=== PATIENT | male | born 1980 | race Two or more races ===

== ENCOUNTER 2017-10-04 20:32 | Emergency (ER) | payer SELFPAY ==
[~2017-10-04] VITALS: Ht 177.8 cm; Wt 84.5 kg
[2017-10-04 22:32] LABS: CULTURE INDICATED? YES; MICROSCOPIC INDICATED
[2017-10-04 23:00] VITALS: BP 117/69
[2017-10-04] MEDS ORDERED: CEFTRIAXONE 1,000 MG IM ONE (23:00)
[2017-10-04] MEDS ORDERED: CEFTRIAXONE 250 MG ONE (23:07)
[2017-10-04] MEDS ORDERED: LIDOCAINE-MPF 1%, 2ML ONE (23:07)
[2017-10-04] MEDS ORDERED: CEFTRIAXONE 1,000 MG ONE (23:13)
== END 2017-10-04 23:59 | disposition home or self-care (01) ==
LOC: ED 23:01
DX: N45.1 Epididymitis (principal); N30.00 Acute cystitis without hematuria
CPT/HCPCS: 76857; 76870; 81001; 87086; 87491; 87591; 96372; 99285; J0696